=== PATIENT | male | born 1955 | race Caucasian/White ===

== ENCOUNTER → 2022-11-10 09:38 | Outpatient (BNVA) | payer BC, SELFPAY | PROVIDERS: PCP Family Medicine; Referring Provider Family Medicine; Visit Provider Student in an Organized Health Care Education/Training Program | CPT/HCPCS: 20610; 99203; J1040 ==

== ENCOUNTER 2023-04-10 05:02 | Outpatient (CLI) | payer BC, SELFPAY ==
[2023-04-10 12:31] LABS: HCT 46.2 % (40.0-50.0); HGB 15.9 g/dL (13.5-17.5); MCH 31.6 pg (27.0-33.0); MCHC 34.4 % (32.0-36.0); MCV 92 fL (80-95); MPV 8.4 fL (8.0-11.0); Platelet Count 236 10^3/uL (130-400); RBC 5.03 10^6/uL (4.36-5.78); RDW 12.2 % (11.8-14.1); RDW-SD 41.1 fL; WBC 7.42 10^3/uL (4.4-10.8)
[2023-04-10 13:17] LABS: Anion Gap 6.8 mmol/L (3-11); BUN 30 mg/dL (7-18); CO2 30.2 mmol/L (21.0-32.0); CREATININE 1.1 mg/dL (0.70-1.30); Calcium 9.7 mg/dL (8.5-10.1); Chloride 106 mmol/L (98-107); Estimated GFR 73.12 (mL/min/1.73m2); Glucose 110 mg/dL (74-106); Potassium 4.3 mmol/L (3.5-5.1); Sodium 143 mmol/L (136-145)
== END 2023-04-10 05:03 | disposition home or self-care (01) ==
LOC: LBO 05:02
PROVIDERS: PCP Family Medicine; Visit Provider Student in an Organized Health Care Education/Training Program
DX: Z01.818 Encounter for other preprocedural examination
CPT/HCPCS: 36415; 80048; 85027

== ENCOUNTER 2023-04-10 15:54 | Outpatient (CLI) | payer BC, SELFPAY ==
--- NOTE | 2023-04-10 11:30 | DI.RAD_ITS ---
Exam(s) XR PELVIS AP EXAM: XR PELVIS AP CLINICAL HISTORY: pre- LUDIN. TECHNIQUE: 2D digital imaging was performed.One images were obtained. COMPARISON: DOC,DX XR PELVIS AND HIP LAT RT from 07/06/2021 FINDINGS: BONES: No acute fracture is present. No bony destructive lesion is seen. JOINTS: There are findings of a prior left total hip replacement. The orthopedic hardware appears in good position. There is marked narrowing of the superior joint space of the right hip. Subchondral sclerosis is seen. Osteophytes are seen in the right femoral head. SOFT TISSUE: Normal. IMPRESSION: Marked degenerative changes of the right hip. DATA REPOSITORY: RADIATION DOSE DELIVERED:
== END 2023-04-10 15:55 | disposition home or self-care (01) ==
LOC: DIORS 15:54
PROVIDERS: PCP Family Medicine; Visit Provider Student in an Organized Health Care Education/Training Program
DX: M16.11 Unilateral primary osteoarthritis, right hip (principal); Z01.818 Encounter for other preprocedural examination
CPT/HCPCS: 72170

== ENCOUNTER 2023-04-19 05:55 | Day surgery (SDC) | payer BC, SELFPAY ==
[2023-04-19] VITALS (14 sets, daily range): BP systolic 96–166; BP diastolic 55–98; PULSE 52–75; RESP 13–22; TEMP 36.3–37; O2SAT 94–100; BMI 26.4
[2023-04-19] MEDS: Lactated Ringers 1,000 ML 80 ML IV (06:50)
--- NOTE | 2023-04-19 07:08 | W.ANESPRE ---
General Info Date of Service Date Performed: 04/19/23 Height: 5 ft 10 in Weight: 83.4 kg Body Mass Index (BMI): 26.4 Surgical Procedure: Operation Date: 04/19/23 07:50 Proposed Procedure Side Surgeon p Hip Total Hip Anterior Right Hardy Mariee MD Meds Allergies and Home Medications Allergies Allergy/AdvReac Type Severity Reaction Status Date / Time No Known Allergies Allergy Verified 04/19/23 06:07 Home Medication Medication Instructions Recorded lisinopril 20 mg tablet 20 mg PO DAILY 11/10/22 acetaminophen 500 mg tablet 1,000 mg (2 x 500 mg) PO TID #90 04/19/23 tabs aspirin 81 mg tablet,delayed 81 mg PO BID #60 tabs 04/19/23 release dexamethasone 4 mg tablet 4 mg PO DAILY #2 tabs 04/19/23 naproxen 500 mg tablet 500 mg PO BID PRN #60 tabs 04/19/23 pantoprazole 40 mg tablet,delayed 40 mg PO DAILY #30 tabs 04/19/23 release tramadol 50 mg tablet 50 mg PO BID PRN #4 tabs 04/19/23 Current Visit Medications: Current Medications Generic Name Dose Route Start Last Admin Trade Name Freq PRN Reason Stop Dose Admin Acetaminophen 1,000 mg 04/19/23 06:00 Acetaminophen 500 Mg Tab PO 04/19/23 16:00 PREOP JHONNY Tranexamic Acid 1,000 mg/ 60 mls @ 360 mls/hr 04/19/23 06:00 Sodium Chloride IV 04/19/23 16:00 PREOP JHONNY Ringer's Solution 1,000 mls @ 80 mls/hr 04/19/23 06:00 IV 04/19/23 23:59 INFUSION JHONNY Cefazolin Sodium/Dextrose 2 gm in 50 mls @ 100 mls/hr 04/19/23 06:00 Ancef Duplex IVPB 04/19/23 23:59 PREOP [facility] IV Miscellaneous Supplies 1 each 04/19/23 06:00 Iv Access IV 04/19/23 23:59 DIRECTED JHONNY Meloxicam 15 mg 04/19/23 06:00 Meloxicam 15 Mg Tab PO 04/19/23 23:59 PREOP JHONNY Sodium Chloride 0 ml 04/19/23 06:00 Normal Saline Flush 10 Ml Syr IV 04/19/23 23:59 PRN PRN Sodium Chloride 0 ml 04/19/23 06:00 Normal Saline 10 Ml Vial IJ 04/19/23 23:59 DIRECTED PRN Sterile Water 0 ml 04/19/23 06:00 Water,Injection,Sterile 10 Ml Vial IJ 04/19/23 23:59 DIRECTED PRN PFSH Active Problems Active Problems: Problem Status Onset Code Lumbar spinal stenosis M48.061 Left lumbar radiculopathy M54.16 Arthritis of right hip M16.11 Osteoarthritis of right knee M17.11 Osteoarthritis of left knee M17.12 Tobacco Smoking/Tobacco Use Status: Never Alcohol Alcohol Intake: current Alcohol intake frequency: a few times a week Alcohol type: hard liquor Substance Use Substance use: Never Substance use type: does not use Vital Signs and Lab Results Vital Signs Most Recent Vital Signs in EMR: Most Recent Vital Signs Temp Pulse Resp BP Pulse Ox 36.4 C L 66 16 166/91 H 98 04/19/23 06:12 04/19/23 06:12 04/19/23 06:12 04/19/23 06:12 04/19/23 06:12 Lab Results Blood Type / Crossmatch: No Data to Display Complete Blood Count: White Blood Count 7.42 10^3/uL (4.4-10.8) 04/10/23 12:13 Red Blood Count 5.03 10^6/uL (4.36-5.78) 04/10/23 12:13 Hemoglobin 15.9 g/dL (13.5-17.5) 04/10/23 12:13 Hematocrit 46.2 % (40.0-50.0) 04/10/23 12:13 Platelet Count 236 10^3/uL (130-400) 04/10/23 12:13 Complete Metabolic Panel: Sodium 143 mmol/L (136-145) 04/10/23 12:13 Potassium 4.3 mmol/L (3.5-5.1) 04/10/23 12:13 Chloride 106 mmol/L (98-107) 04/10/23 12:13 Carbon Dioxide 30.2 mmol/L (21.0-32.0) 04/10/23 12:13 BUN 30 mg/dL (7-18) H 04/10/23 12:13 Creatinine 1.1 mg/dL (0.70-1.30) 04/10/23 12:13 Est GFR (CKD-EPI 2020) 73.12 (mL/min/1.73m2) 04/10/23 12:13 Calcium 9.7 mg/dL (8.5-10.1) 04/10/23 12:13 Glucose 110 mg/dL (74-106) H 04/10/23 12:13 Liver Function Panel: No Data to Display Coagulation Panel: No Data to Display Cardiac Panel: No Data to Display Arterial Blood Gas: No Data to Display Venous Blood Gas: No Data to Display Pancreas Panel: No Data to Display Thyroid Panel: No Data to Display Infectious Disease: No Data to Display Blood Cultures: No Data to Display Toxicology Panel: No Data to Display Anesthesia Assessment and Plan Anesthesia History Personal History: No History of Anesthesia Complications Family History: No Family History of Anesthesia Complications Exercise Tolerance Exercise Tolerance: Metabolic Equivalents>4 Pertinent Negatives Pertinent Negatives: No Symptoms of GERD, No Major Cardiovascular Symptoms or Complaints and No Major Pulmonary Symptoms or Complaints Cardiac & Pulmonary Exam Cardiac Exam: Normal S1/S2 Heart Sounds Pulmonary Exam: Clear Bilateral Breath Sounds Implantable Cardiac Device Does patient have a Pacemaker or an ICD?: No Airway Exam Known Difficult Airway: No Mallampati Class: 1 Mouth Opening: Normal (> 3cm) Thyromental Distance: Greater than 3 cm Neck Range of Motion: Full ROM Neck Circumference: Normal Teeth Condition: Normal Dentition ASA Classification ASA Score: ASA 2 Emergency Case?: No NPO Status NPO Status: NPO Clears >2 hours, Solids >8 hours Anesthesia Plan Resuscitation Status: Full Code Anesthesia Technique: Spinal Anesthesia Airway Planned: Natural Airway Monitors Used: Standard Monitors
[2023-04-19] MEDS: Acetaminophen 500 MG TAB 1000 MG PO (07:12)
[2023-04-19] MEDS: Meloxicam 15 MG TAB PO (07:13)
--- NOTE | 2023-04-19 07:14 | PDOC.DSDIS_ITS ---
Date of service: 04/19/23 Time of Service: 07:14 Discharge Plan Disposition Patient Disposition: Home Condition: Good Discharge Details Reason For Visit: R THR Attending Provider: Hardy Mariee Primary Care Provider: Lupillo Meléndez Home Meds and New Rx's Prescriptions: New acetaminophen 500 mg tablet 1,000 mg PO TID Qty: 90 3RF aspirin 81 mg tablet,delayed release (DR/EC) 81 mg PO BID Qty: 60 0RF dexamethasone 4 mg tablet 4 mg PO DAILY Qty: 2 0RF tramadol 50 mg tablet 50 mg PO BID PRNQty: 4 0RF pantoprazole 40 mg tablet,delayed release (DR/EC) 40 mg PO DAILY Qty: 30 0RF naproxen 500 mg tablet 500 mg PO BID PRNQty: 60 2RF Continued lisinopril 20 mg tablet 20 mg PO DAILY Discontinued naproxen 250 mg tablet 250 mg PO BID PRN Discharge Instructions Additional Instructions: Total Hip Discharge Instructions Activity: The most important activity is to walk. You should try to take short walks a few times a day. You have no restrictions on movement or positioning, but do not try to force what you do. You will find some stiffness and weakness with hip flexion (lifting your knee). Do not try to strengthen this too early, continue to practice walking and stairs and this will come. - Outpatient physical therapy can be helpful to help return you to a normal gait and improve your flexibility and strength. This can start around 2 weeks. For some patients, it?s not necessary. Usually this is determined at the time of discharge or at the first post-operative visit. - You should wear the NORA hose on both legs for 2 weeks. Dressing: Keep the surgical dressing in place for at least one week. After the first week it may be removed and replace with light gauze and tape or nothing. It may get wet after 3 days but avoid soaking the dressing. If it gets wet, just lightly pat dry. It is important to always keep some gauze between skin folds, especially when you are sitting. Spend some time with the wound exposed when you are lying flat as the incision does wrinkle onto itself. Medications: - You should take Tylenol and an anti-inflammatory naproxen as your primary pain control medications. - You have been prescribed a stronger pain medication tramadol for breakthrough pain, take as needed as prescribed. - You have also been prescribed a stomach acid reduction agent Pantoprozole to help reduce stomach acid and reflux. - You have also been prescribed Decadron to help with post-operative nausea and pain. You will take this for two days starting tomorrow. - You will be taking Aspirin 81mg twice a day for DVT prevention unless instructed otherwise. - If you have constipation you should take Colace or Miralax (both gyyr-vry-vkaannw). It takes most people 3-4 days to have a bowel movement. Follow-up: 2 weeks If you have any acute concerns or questions, please do not hesitate to contact the office at [phone]. You may contact Dr. Mariee with any questions after hours through the hospital at [phone] or on his cell phone at [phone]. Referrals: Hardy Mariee MD [ [facility] STAFF PHYSICIAN] - Equipment/Supplies: Walker Activity:: Activity as Tolerated Shower/Bathe:: 72 hours Diet:: As Tolerated DS: Diagnosis Discharge Diagnosis (1) Arthritis of right hip: Status: Acute
[2023-04-19] MEDS: ceFAZolin 2 GM/50 ML BAG IVPB (07:33)
--- NOTE | 2023-04-19 08:50 | DI.RAD_ITS ---
Exam(s) XR HIP RT IN OR EXAM: XR HIP RT IN OR CLINICAL HISTORY: right hip osteoarthritis. TECHNIQUE: 2D and realtime digital imaging was performed. COMPARISON: CR XR PELVIS AP from 04/10/2023 FINDINGS: A hard copy image shows placement of a right hip prosthesis. The alignment appears satisfactory. Please see procedure note for details. Fluoro time: 24seconds RADIATION DOSE DELIVERED: Ka,r=2.93 mGy
--- NOTE | 2023-04-19 09:30 | RT.EKG_ITS ---
APPROVED REPORT Exam: Resting ECG Reason for Exam: Chest Pressure Patient Location: O HR:52 bpm ECG Measurements Heart Rate 52 AXIS MS 174 P 32 QRSd 78 QRS -1 QT 462 T 139 QTc 432 Conclusion Sinus bradycardia...rate< 60 Early transition Left ventricular hypertrophy with repolarization abnormalities
--- NOTE | 2023-04-19 10:12 | ROE_ITS ---
Date of service: 04/19/23 Time of Service: 07:50 Operative Note Operative Note DATE OF PROCEDURE: 04/19/23 PRE-OP DIAGNOSIS: Right Hip Osteoarthritis POST-OP DIAGNOSIS: same PROCEDURE: Right Anterior Total Hip Arthroplasty with Intraoperative Navigation SURGEON: Hardy Mariee MIXING HOUSE OPERATOR: Abhishek Cheng ANESTHESIA TYPE: Spinal Refer to Anesthesia Record ESTIMATED BLOOD LOSS: 150 PATHOLOGY: none sent TOURNIQUET TIME: 0 COMPLICATIONS: None Patient was transported to: PACU Patient's condition: stable Implants: 1. Depuy [place] Acetabular Component, 56mm 2. Depuy Acetabular Liner, 32h54ic 3. Depuy Actis Standard Collared Femoral Stem, Size 7 4. Depuy Altrx Ceramic Femoral Head, Size 36+5mm Indications: I have seen Tan in clinic for symptoms of hip arthritis, confirmed with radiographic findings. He has exhausted nonoperative methods and was having significant limitations in daily function and desired better function and less pain. I discussed the technical details of a hip replacement. I explained the risks of the procedure to include, but not limited to, bleeding, infection, pain, stiffness, fracture, damage to nerves and vessels, damage to muscles and tendons, loosening, instability, leg length inequality, need for repeat proc edure, blood clot and cardiopulmonary demise. Despite these risks, Tan elected to proceed. Findings: There was significant signs of arthritis throughout the hip. Procedure Description: Tan was greeted in the preoperative holding area where the correct side was identified and marked. The consent was reviewed with the patient and signed. The history and physical was updated. All questions were answered. He was taken back to the operating room. A spinal anesthestic was then administered. The feet were wrapped with cast padding and Coban and then placed into the boot liners and then into the boots. Care was taken to protect the skin and make sure the heels were fully down and the boots were stable. The patient was then positioned onto the HANA table. Both legs were held in a neutral position. SCDs were applied. The patient was then slid down onto a peroneal post. Prophylactic antibiotics in the form of Cefazolin were administered. 1g of Tranxemic Acid was given intravenously within 30 minutes of incision. The right leg was then prepped with Chloraprep and draped in a standard fashion. A second prep with Chloraprep was performed prior to placement of a shower-curtain type drape with Iodine impregnated skin protection. A timeout to confirm correct identity, side and site, procedure, allergies, anesthesia, and medical concerns was performed. An obliquely oriented incision was made starting lateral to the ASIS and running distal over the Tensor Fascia Veda (TFL) muscle belly toward the fibular head, approximately 10cm. The skin and soft tissue was dissected sharply, through Zoie?s fascia, and to the fascia of the TFL. With the fascia and superior border of the IT band identified, the fascia was incised with a new knife just above any perforators from the IT band. The TFL muscle belly was bluntly dissected away from the fascia and moved laterally. The fat between TFL and rectus was identified to ensure the dissection was not within the TFL. Blunt dissection created space between abductors and the capsule and retractor was placed over the lateral femoral neck. The fibers of the rectus femoris tendon were identified and these were freed from the anterior capsule. A second cobra retractor was placed around the medial femoral neck. The TFL was further retracted laterally to show the deep fascia. Careful dissection through this layer identified three main crossing vessels of the lateral femoral circumflex. These were cauterized in multiple locations and then cut without any noticeable bleeding. The TFL was further released bluntly from the deep fascia to expose anterior hip capsule and fat The Luis orthopaedic retractor was then placed beneath the TFL and against sartorius and medial soft tissues to protect and retract the soft tissues. A T-capsulotomy was then performed starting at the superior lateral acetabulum and moving distally to the intertrochanteric ridge. These capsular flaps were tagged with a No. 1 Ethibond and elevated from within. The capsular flaps were released to the shoulder of the lateral neck and to the lesser trochanter to give excellent visualization of the proximal femur. A neck osteotomy was performed using an oscillating saw based on preoperative templates. This cut started in the shoulder and of the lateral neck and exited medially. The saw was at all times directed medially to avoid injury to the greater trochanter. Gross traction was applied to the leg and the osteotomy opened. The femoral head was removed with a corkscrew, making sure to protect the TFL on its exit. Traction was released after head removal. This was measured on the back table to determine the starting reamer size. Portions of the rectus obscuring visualization were minimally elevated off the superior acetabulum. An anterior retractor was placed over the anterior wall between capsule and labrum and attached to the Gripper retraction system. The femur was rotated to 90 degrees and medial capsule was fully released until the lesser trochanter was palpable and visible; the femur was returned to 30 degrees. A posterior retractor was placed similarly between capsule and labrum. This provided excellent visualization. The contents of the cotyloid fossa were removed with electrocautery and the labrum was removed with a knife. There was a notable floor osteophyte. There was significant chondromalacia of the superior acetabulum. Acetabular reaming began with a 52mm reamer. This first reaming was directed anterior to posterior and medial to get down to the true floor. This was inspected and reamed until the true floor was reached. The anterior retractor was then released and entry and exit was provided by traction on the capsular flaps. I then reamed sequentially up to a 56mm reamer where good fit was obtained. The larger reamers were oriented based on anatomical reference of the anterior and lateral burroughs to ensure proper abduction and anteversion. Positioning and size was confirmed with the fluoroscopy. A 56mm Depuy [place] acetabular component was selected. The acetabulum was reamed around the periphery with the selected acetabular size to prevent a rim fit. The deep tissues were irrigated. The acetabular component was then impacted in a position of about 40-45 degrees of abduction and 15-20 degrees of anteversion, using the patient?s anatomy as the ultimate landmark. Fluoroscopy was used to confirm this. There was excellent blow up operator of the acetabular component and the inserting handle was removed. The acetabular liner, Depuy [id number] polyethylene liner, was inserted and lined up with the tines of the acetabular component. There was no soft tissue interposition. The liner was then impacted into position and confirmed to be well-seated. A portion of the aldo-articular cocktail was then injected around the acetabulum into the capsule and periosteum. This cocktail consisted of 123mg of Ropivacaine, 0.25mg of Epinephrine, 0.04mg of Clonidine, and 15mg of Ketorolac, diluted to 50cc. The leg was rotated to 120 degrees. Any remaining medial capsule was released until the lesser trochanter was easily palpable. A retractor was placed medially. The lateral capsule was further released into the shoulder to allow access to the greater trochanter. A Guerrier retractor was placed over the greater trochanter which allowed the trochanter to flip in front of the capsule for excellent exposure. The leg was brought down into maximal extension and 20 degrees of adduction while ensuring there was no impingement on the acetabulum. Any remnant capsule within the trochanter was released. Piriformis and obturator externis were identified and protected. There was excellent access to the proximal femur. The lateral neck remnant was removed with a rongeur. A blunt canal probe was used to identify the canal and trajectory for later broaching. A box osteotome initiated the broach course. A small curved rasp and a curved curette were used to work laterally. Broaching then began with a starter Actis broach. This was inserted manually around the trochanter and into the canal before mallet blows. The broach was seated to a few millimeters below the cut level based on the neck cut and the preoperative template. Sequential broaching was continued with the [employer] pneumatic broaching device until a tight fit was obtained with good rotational control of the femur. A trial standard neck was inserted along with a +1.5 trial head. The leg was brought out of extension and adduction and then reduced with traction and internal rotation. The leg was stable anteriorly in a position of 30 degrees of extension and 90 degrees of external rotation. Fluoroscopy was used to ensure there was no fracture and the stem was seated well. Leg lengths were checked with an AP pelvis and pelvic reference points. [employer]yo[employer] navigation system was used to confirm appropriate positioning and leg length and offset. This overcorrected the leg length so the stem size was decreased and the stem advanced and retrialed with a +5 head. Once content with the desired offset and leg lengths, the leg was brought back into extension, external rotation and adduction. The periosteum and surrounding tissue was injected with remaining portion of the aldo-articular cocktail. The proximal femur was irrigated as well as the deep tissues. The Kate[employer] Goodnessuy Actis standard collared stem, size 7, was then manually inserted into the proximal femur making sure to control rotation. It was then malleted into position with light blows, giving breaks to allow bone expansion and decrease risk of fracture. The selected Depuy Altrx Ceramic Head, size 36+5mm, was then placed onto the clean and dry trunnion and secured with impaction onto the tapered fit. The leg was brought back out of extension and adduction and reduced with traction and internal rotation. Stability was confirmed with no shuck at 90 degrees of external rotation and 30 degrees of extension. No impingement through range of motion arc. Final x-ray images were obtained with fluoroscopy to confirm adequate positioning and no intraoperative fracture. The deep tissues were thoroughly irrigated with Surgiphor, betadine solution. This was allowed to sit in the wound for 3 minutes before being thoroughly irrigated out with normal saline. The capsule was then reapproximated with the previously placed Ethibond sutures. The TFL fascia was finally closed with a No. 2 Stratafix, barbed suture. Deep tissues were then reapproximated with 0 Vicryl and a running 2-0 Vicryl. The skin was closed with a running 4-0 Monocryl in a subcuticular fashion. This was reinforced with skin glue. A Mepilex silver dressing was applied. At the end of the case, all counts were correct. Tan was transferred to the hospital bed without difficulty and suffering no apparent complication. Tan has a good prognosis. Physical therapy will start today and without restrictions, weight-bearing as tolerated. Aspirin 81mg BID will be used for DVT prophylaxis.
[2023-04-19 10:46] LABS: ALT 22 U/L (16-63); AST 20 U/L (15-37); Albumin 3.7 g/dL (3.4-5.0); Alkaline Phosphatase 72 U/L (46-116); Anion Gap 9.5 mmol/L (3-11); BUN 23 mg/dL (7-18); Bilirubin, Total 0.4 mg/dL (0.2-1.0); CO2 26.5 mmol/L (21.0-32.0); CREATININE 1.1 mg/dL (0.70-1.30); Calcium 8.9 mg/dL (8.5-10.1); Chloride 106 mmol/L (98-107); Estimated GFR 73.12 (mL/min/1.73m2); Glucose 119 mg/dL (74-106); Potassium 4.9 mmol/L (3.5-5.1); Sodium 142 mmol/L (136-145); Total Protein 6.5 g/dL (6.4-8.2); Troponin I < 50 ng/L (< or =60)
--- NOTE | 2023-04-19 10:47 | PDOC.ANES ---
Date of service: 04/19/23 Time of Service: 09:50 Anesthesia Note Report Anesthesia Note: Pt. had uneventful hip surgery. While in PACU, he complained of 1/10 anterior chest pressure. Denies radiation, SOB/dizziness/sweaty feeling. This is not reproducible and does not change with breathing. With further investigation, he states he has had this feeling on and off over the past year or so, most noted while exerting himself at times with SOB. He states this usually improves when he takes a break. He has not mentioned this to anyone until today. He appears in no acute distress and is hemodynamically stable. no oxygen requirement. Will obtain 12 lead and order base troponin and CMP. 12 lead showed slight elevation in V2 as well as lateral leads flipped T wave. I discussed this with patient at 1005, his pressure was gone. Given 12 lead changes, will check another troponin in 4 hours. No need to escalate care at this time, but will take appropriate precautions. All questions answered and patient understands plan.
--- NOTE | 2023-04-19 13:53 | IN_ITS ---
PT Notes Visit Reasons: R THR Physical Therapy Day Surgery Initial Evaluation Date: 04/19/2023 Referring Doctor: JOSE Trinh PT Orders: PT CONSULT: S/P ortho Surgery Precautions: WBAT on the R LE with AD. Patient Profile/Admitting Diagnosis: Eric is a 67-year-old male with degenerative joint disease of the right hip and is status post right anterior total hip arthroplasty on postoperative day 0. PMHX: All Active Problems (Updated 03/19/23 @ 14:40 by Hardy Mariee MD) Lumbar spinal stenosis (Acute) Left lumbar radiculopathy (Acute) Arthritis of right hip (Acute) Osteoarthritis of right knee (Acute) DEPO MEDROL 03/17/23 Osteoarthritis of left knee (Acute) DEPO MEDOL 03/17/22 Social History/Home Situation: Lives with in a private home with no steps to enter, they do have 3 steps that lead to their kitchen area with stable surfaces that he can push down on both sides. Independent with all aspects feels prior to surgery although has had increasing difficulty with mobility performance due to worsening arthritis. Equipment Owned/DME: None Subjective: Complained of achiness on the right hip about 1?2/10 pain. Reported mild lightheadedness that did not limit mobility performance. Denied headache and chest pain throughout session. Objective: General Observation: Mepilex Ag over surgical incision. TEDS to be legs. present in room throughout session. Mental Status: A&O x 4 Pain: As above ROM: Right Lower Extremity: Hip flexion WFL. Hip abduction WFL. Knee flexion WFL. Ankle dorsiflexion WFL. Ankle plantarflexion WFL. Left Lower Extremity: Hip flexion WFL. Hip abduction WFL. Knee flexion WFL. Ankle dorsiflexion WFL. Ankle plantarflexion WFL. Strength: Right Lower Extremity: Hip flexors 4-/5. Hip abductors 4-/5. Knee flexors 5/5. Knee extensors 4-/5. Ankle dorsiflexors 5/5. Ankle plantarflexors 5/5. Left Lower Extremity:Hip flexors 5/5. Hip abductors 5/5. Knee flexors 5/5. Knee extensors 5/5. Ankle dorsiflexors 5/5. Ankle plantarflexors 5/5. Sensation: Intact as to pain and light pressure in BLE Bed Mobility/Transfers: Minimal cueing provided for use of B hands as needed for support, movement sequence, AD management, and posture to reduce fall risk and minimize pain report Supine to sit standby assist Sit to stand contact-guard assist with FWW Stand to sit standby assist with FWW Bed to chair stand by assist with FWW Gait: Facilitated safe and correct performance of level surface ambulation covering a distance of 150 feet using reciprocal step through gait pattern with standby assist and minimal cueing provided for movement sequence, AD management, and posture to reduce fall risk and minimize pain report. STAIRS: Guided patient with safe and correct negotiation of 6 x 4 inch steps and 4 x 6 inch steps holding onto bilateral rails with step to gait pattern requiring standby assist and minimal verbal cueing for movement sequence and posture to reduce fall risk and minimize pain report. Balance: Static Sitting: Normal Dynamic Sitting: Normal Static Standing: Fair Dynamic Standing: fair Special Tests: Mobility Limitations Standardized Measure [facility] AM-PAC 6 clicks Basic Mobility Inpatient Short Form: Raw Score: 23 CMS Score: 11% deficit Informed Consent/Education: Patient instructed in purpose of PT consult. Packet containing LUDIN exercise protocol has been given to patient. Education and training on initial set of exercises that can be done at home have been completed with patient. Trained patient with correct performance of exercises below to maximize motor control, joint flexibility, soft tissue extensibility of the R hip musculature to facilitate return to independent functional mobility performance. Access Code: [email or web address] URL: [email or web address] Date: 04/19/2023 Prepared by: Rosemarie Grider Exercises - Gluteal Sets - 1 x daily - 7 x weekly - 1 sets - 10 reps - 5 hold - Supine Heel Slide - 1 x daily - 7 x weekly - 1 sets - 10 reps - 5 hold - Supine Ankle Pumps - 1 x daily - 7 x weekly - 1 sets - 10 reps - 5 hold - Seated March - 1 x daily - 7 x weekly - 1 sets - 10 reps - 5 hold - Seated Long Arc Quad - 1 x daily - 7 x weekly - 1 sets - 10 reps - 5 hold Assessment: Patient requires use of a front wheeled walker for all mobility ADL performance to maximize independence and reduce fall risk. Patient presents with clinical signs and symptoms consistent with current/admitting diagnoses that have resulted to mobility limitations, gait instability, generalized weakness, and impairment of motor control as demonstrated by the following impairment level findings: 1. Decreased strength to R hip major muscle groups 2. Impaired standing balance Impairments are contributing to the following functional limitations: 1. Inability to safely ambulate without assistive device 2. Increase completion time for mobility ADL performance 3. Increased fall risk Patient is assessed as a 28805 moderate complexity based on the following: History: 67-year-old male with impairment level findings, functional limitations , and past medical history as indicated above Examination: Demonstrable impairment in strength, balance, and mobility level with underlying impairments and functional limitations as documented above Presentation: Evolving Decision Makin moderate complexity Goals: N/A. PT evaluation and 1-2 treatment sessions only for functional mobility training using recommended AD and for HEP instruction. Plan of Care/Treatment Plan: N/A. PT evaluation and 1-2 treatment session only for functional mobility training using recommended AD and for HEP instruction. DISCHARGE RECOMMENDATIONS: Home when medically cleared by orthopedic surgeon. Recommend outpatient PT services in order to optimize functional mobility outcomes and facilitate return to independent community ambulation without an assistive device. TREATMENT CODE/TIME: 01136 x 27 minutes for 1 unit (13:52-14:20). Thank you for the opportunity to participate in the care of this patient. Please sign an return this page within 30 days if you agree with the above POC. Thank you! Physician Signature Date [facility] Thank you for the opportunity to participate in the care of this patient. Rosemarie Grider PT, DPT, CLT [facility] [place], [place]
[2023-04-19 14:17] LABS: Troponin I < 50 ng/L (< or =60)
--- NOTE | 2023-04-19 14:37 | W.ANESPOSTOP ---
Postoperative Evaluation Date, Time and Location Date Performed: 04/19/23 Time Performed: 14:37 Patient Location: Day Surgery Unit Vital Signs Most Recent Imported Vital Signs: Most Recent Vital Signs Temp Pulse Resp BP Pulse Ox 37.0 C 73 16 143/92 H 96 04/19/23 13:55 04/19/23 13:55 04/19/23 13:55 04/19/23 13:55 04/19/23 13:55 Pain Score Most Recent Pain Score: Most Recent Pain Score Pain Level 0 04/19/23 13:55 Assessment Mental Status: Awake (Alert & Oriented to Patient Baseline) Airway and Respiratory Function: Patent airway with normal (patient baseline) respiratory exam Cardiovascular Function: Hemodynamically Stable Hydration Status: Adequately Hydrated Nausea & Vomiting: No Nausea or Vomiting Pain: Pt. Denies Any Pain Peripheral Nerve Block: Patient did not receive a nerve block
== END 2023-04-19 15:20 | disposition home or self-care (01) ==
PROVIDERS: Nurse Anesthetist, Certified Registered; PCP Family Medicine; Visit Provider Student in an Organized Health Care Education/Training Program
PROC: (CPT 27130; principal; 2023-04-19 07:30)
DX: M16.11 Unilateral primary osteoarthritis, right hip (principal)
CPT/HCPCS: C1776; 20985; 27130; 36415; 80053; 97162; 73501; 84484; 93005; 93010; J0690; J1100; J2250; J2371; J2401; J2405; J2704

== ENCOUNTER 2023-05-04 14:52 | Outpatient (CLI) | payer BC, SELFPAY ==
--- NOTE | 2023-05-04 12:00 | DI.RAD_ITS ---
Exam(s) XR HIP RT COMPLETE AP PELVIS EXAM: XR HIP RT COMPLETE AP PELVIS CLINICAL HISTORY: 1st post op S/P R LUDIN. TECHNIQUE: 2D digital imaging was performed. COMPARISON: CR XR PELVIS AP from 04/10/2023 FINDINGS: Two views: There as been interval placement of a right hip prosthesis. This is in satisfactory position alignme nt. No fracture or loosening evident. The opposite-left hip prosthesis also remain stable. IMPRESSION: Stable satisfactory appearance. DATA REPOSITORY: RADIATION DOSE DELIVERED:
== END 2023-05-04 14:53 | disposition home or self-care (01) ==
LOC: DIORS 14:53
PROVIDERS: PCP Family Medicine; Visit Provider Physician Assistant
DX: Z96.641 Presence of right artificial hip joint (principal); Z47.1 Aftercare following joint replacement surgery
CPT/HCPCS: 73502

== ENCOUNTER 2023-12-12 06:05 | Day surgery (SDC) | payer BC, SELFPAY ==
[2023-12-12 06:23] VITALS: BP 121/74; PULSE 64; RESP 16; TEMP 36.6; O2SAT 98
--- NOTE | 2023-12-12 07:11 | PDOC.DSDIS_ITS ---
Date of service: 12/12/23 Time of Service: 07:13 Discharge Plan Disposition Patient Disposition: Home Condition: Good Discharge Details Reason For Visit: Right index trigger finger Attending Provider: Hardy Mariee Primary Care Provider: Lupillo Meléndez Home Meds and New Rx's Prescriptions: Continued lisinopril 20 mg tablet 20 mg PO DAILY aspirin 81 mg tablet,delayed release (DR/EC) 81 mg PO DAILY clopidogrel [Plavix] 75 mg tablet 75 mg PO DAILY acetaminophen 500 mg tablet 1,000 mg PO TID Qty: 90 3RF naproxen 500 mg tablet 500 mg PO BID PRNQty: 60 2RF Discharge Instructions Stand Alone Forms: Jaylene Mcdaniels Finger Release Referrals: Hardy Mariee MD [ [facility] STAFF PHYSICIAN] - Activity:: Elevate Remove Dressings/Wound Care:: 48 hours Shower/Bathe:: 48 hours Diet:: As Tolerated Discharge Orders Discharge Orders: Discharge Order (Routine); Ordered 12/12/23 Ordered By: Khushboo Cuellar
[2023-12-12] MEDS: Sodium Bicarbonate 50 MEQ/50 ML VIAL (07:33)
[2023-12-12] MEDS: Lidocaine 1% Multi-Dose W/EPI 1/100,000 50 ML VIAL (07:33)
[2023-12-12 07:37] VITALS: BP 145/87; PULSE 54; RESP 16; TEMP 36; O2SAT 100
--- NOTE | 2023-12-12 07:38 | W.PM.OP ---
Date of service: 12/12/23 Time of Service: 07:20 Operative Note Operative Note DATE OF PROCEDURE: 12/12/23 PRE-OP DIAGNOSIS: Right Index Finger Trigger Finger POST-OP DIAGNOSIS: same PROCEDURE: Trigger Finger Release - Right Index Finger SURGEON: Hardy Mariee JUVENILE PROBATION OFFICER: Khushboo Cuellar ANESTHESIA TYPE: Local By Surgeon Refer to Anesthesia Record PATHOLOGY: none sent COMPLICATIONS: None Patient was transported to: same day Patient's condition: stable Indications: I have seen Tan in clinic for symptoms of a trigger finger. The catching, clicking, locking, and pain limited function. The diagnosis of trigger finger was evident. The symptoms had not responded to conservative measures. I discussed trigger finger release with the patient. I reviewed the risks of the procedure to include, but not limited to, bleeding, infection, pain, stiffness, incomplete release, damage to nerves or vessels, continued catching, recurrence. Despite these risks, the patient elected to proceed. Findings: There was a tightened A1 georgi which was released. The flexor tendons were inspected and the patient was able to move the finger without any catching, clicking, or locking. Procedure Description: Tan was greeted in the preoperative holding area where the correct side was identified and marked. The consent was reviewed with the patient and signed. All questions were answered. He was taken back to the operating room. The patient was placed into the supine position on the operating room table with the right arm on an arm board. All bony prominences were well padded. No prophylactic antibiotics were administered since this was a clean, elective hand surgical case. The right arm was then prepped with Chloraprep and draped in a standard fashion with stockinette and extremity drape. A timeout to confirm correct identity, side and site, procedure, allergies, anesthesia, and medical concerns was performed. The surgical site was marked as a longitudinal incision directly over the A1 georgi of the involved digit. This was confirmed with palpation during finger flexion. This area, overlying the metacarpal head, was then anesthetized with 1% Lidocaine. The patient tolerated this well and once the anesthetic had setup, the procedure began. A longitudinal incision was made through skin only, approximately 1cm. The deep tissues were dissected bluntly. Once the A1 georgi and flexor tendons were identified the soft tissue including neurovascular structures were retracted medially and laterally. There were no crossing structures over the A1 georgi. The proximal edge of the georgi was identified and the georgi was incised with tenotomy scissors. There was a release of the tendons once this was fully released. The tendons were then removed from the wound and inspected. The tendons were then returned and the patient was asked to move the finger into deep flexion and back to extension. There was no recreation of the pre-operative symptoms. The hand was then once more inspected for any A0 georgi or area of possible constriction. The wound was then irrigated and the skin was closed with a 4-0 Nylon. This was dressed with gauze and a Conform dressing. The patient tolerated the procedure well and was returned to the Same Day Surgery area in a stable condition suffering no known complication.
== END 2023-12-12 07:51 | disposition home or self-care (01) ==
PROVIDERS: PCP Family Medicine; Visit Provider Student in an Organized Health Care Education/Training Program
PROC: (CPT 26055; principal; 2023-12-12 07:30)
DX: M65.321 Trigger finger, right index finger (principal)
CPT/HCPCS: 26055; J2004

== ENCOUNTER 2023-12-26 09:29 | Day surgery (SDC) | payer BC, SELFPAY ==
--- NOTE | 2023-12-26 07:34 | W.PM.DSUDISC ---
Date of service: 12/26/23 Time of Service: 07:34 Discharge Plan Disposition Patient Disposition: Home Condition: Good Discharge Details Reason For Visit: Left index finger trigger finger Attending Provider: Hardy Mariee Primary Care Provider: Lupillo Meléndez Home Meds and New Rx's Prescriptions: Continued lisinopril 20 mg tablet 20 mg PO DAILY aspirin 81 mg tablet,delayed release (DR/EC) 81 mg PO DAILY clopidogrel [Plavix] 75 mg tablet 75 mg PO DAILY acetaminophen 500 mg tablet 1,000 mg PO TID Qty: 90 3RF naproxen 500 mg tablet 500 mg PO BID PRNQty: 60 2RF Discharge Instructions Stand Alone Forms: Jaylene Mcdaniels Finger Jessica Activity:: Elevate Remove Dressings/Wound Care:: 48 hours Shower/Bathe:: 48 hours Diet:: As Tolerated Discharge Orders Discharge Orders: Discharge Order (Routine); Ordered 12/26/23 Ordered By: Khushboo Cuellar
[2023-12-26 09:39] VITALS: BP 122/81; PULSE 64; RESP 16; TEMP 36; O2SAT 97
[2023-12-26] MEDS: Sodium Bicarbonate 50 MEQ/50 ML VIAL (11:52)
[2023-12-26] MEDS: Lidocaine 1% Multi-Dose W/EPI 1/100,000 50 ML VIAL (11:52)
[2023-12-26 12:06] VITALS: BP 120/74; PULSE 95; RESP 16; TEMP 36.7; O2SAT 97
--- NOTE | 2023-12-26 17:12 | W.PM.OP ---
Date of service: 12/26/23 Time of Service: 12:00 Operative Note Operative Note DATE OF PROCEDURE: 12/26/23 PRE-OP DIAGNOSIS: Left index finger trigger finger POST-OP DIAGNOSIS: same PROCEDURE: Trigger Finger Release -left index finger SURGEON: Hardy Mariee ANESTHESIA TYPE: Local By Surgeon Refer to Anesthesia Record ESTIMATED BLOOD LOSS: 0 PATHOLOGY: none sent COMPLICATIONS: None Patient was transported to: same day Patient's condition: stable Indications: I have seen Joshua in clinic for symptoms of a trigger finger. The catching, clicking, locking, and pain limited function. The diagnosis of trigger finger was evident. The symptoms had not responded to conservative measures. I discussed trigger finger release with the patient. I reviewed the risks of the procedure to include, but not limited to, bleeding, infection, pain, stiffness, incomplete release, damage to nerves or vessels, continued catching, recurrence. Despite these risks, the patient elected to proceed. Findings: There was a tightened A1 georgi which was released. The flexor tendons were inspected and the patient was able to move the finger without any catching, clicking, or locking. Procedure Description: Joshua was greeted in the preoperative holding area where the correct side was identified and marked. The consent was reviewed with the patient and signed. All questions were answered. He was taken back to the operating room. The patient was placed into the supine position on the operating room table with the left arm on an arm board. All bony prominences were well padded. No prophylactic antibiotics were administered since this was a clean, elective hand surgical case. The left arm was then prepped with Chloraprep and draped in a standard fashion with stockinette and extremity drape. A timeout to confirm correct identity, side and site, procedure, allergies, anesthesia, and medical concerns was performed. The surgical site was marked as a longitudinal incision directly over the A1 georgi of the involved digit. This was confirmed with palpation during finger flexion. This area, overlying the metacarpal head, was then anesthetized with 1% Lidocaine. The patient tolerated this well and once the anesthetic had setup, the procedure began. A longitudinal incision was made through skin only, approximately 1cm. The deep tissues were dissected bluntly. Once the A1 georgi and flexor tendons were identified the soft tissue including neurovascular structures were retracted medially and laterally. There were no crossing structures over the A1 georgi. The proximal edge of the georgi was identified and the georgi was incised with tenotomy scissors. There was a release of the tendons once this was fully released. The tendons were then removed from the wound and inspected. Excess synovium was resected. The tendons were then returned and the patient was asked to move the finger into deep flexion and back to extension. There was no recreation of the pre-operative symptoms. The hand was then once more inspected for any A0 georgi or area of possible constriction. The wound was then irrigated and the skin was closed with a 4-0 Nylon. This was dressed with gauze and a Conform dressing. The patient tolerated the procedure well and was returned to the Same Day Surgery area in a stable condition suffering no known complication.
== END 2023-12-26 12:15 | disposition home or self-care (01) ==
LOC: SUR 09:31
PROVIDERS: PCP Family Medicine; Visit Provider Student in an Organized Health Care Education/Training Program
PROC: (CPT 26055; principal; 2023-12-26 11:45)
DX: M65.322 Trigger finger, left index finger (principal)
CPT/HCPCS: 26055; J2004

== ENCOUNTER 2024-02-12 11:48 | Day surgery (SDC) | payer BC, SELFPAY ==
--- NOTE | 2024-02-12 07:46 | W.PM.DSUDISC ---
Date of service: 02/12/24 Discharge Plan Disposition Patient Disposition: Home Condition: Good Discharge Details Reason For Visit: Left middle finger trigger finger Attending Provider: Hardy Mariee Primary Care Provider: Lupillo Meléndez Home Meds and New Rx's Prescriptions: Continued lisinopril 20 mg tablet 20 mg PO DAILY aspirin 81 mg tablet,delayed release (DR/EC) 81 mg PO DAILY clopidogrel [Plavix] 75 mg tablet 75 mg PO DAILY acetaminophen 500 mg tablet 1,000 mg PO TID Qty: 90 3RF naproxen 500 mg tablet 500 mg PO BID PRNQty: 60 2RF Discharge Instructions Stand Alone Forms: Louann Navarro (DSPatt) Activity:: Elevate Remove Dressings/Wound Care:: 48 hours Shower/Bathe:: 48 hours Diet:: As Tolerated Discharge Orders Discharge Orders: Discharge Order (Routine); Ordered 02/12/24 Ordered By: Khushboo Cuellar Discharge Data Discharge Date/Time-TO BE ENTERED AT DEPARTURE: 02/12/24 13:30
[2024-02-12 11:50] VITALS: BP 143/81; PULSE 57; RESP 18; TEMP 36.5; O2SAT 99
[2024-02-12] MEDS: Sodium Bicarbonate 50 MEQ/50 ML VIAL (13:00)
[2024-02-12] MEDS: Lidocaine 1% Multi-Dose W/EPI 1/100,000 50 ML VIAL (13:00)
--- NOTE | 2024-02-12 14:13 | ROE_ITS ---
Operative Note Operative Note PRE-OP DIAGNOSIS: Left Middle Finger Trigger Finger POST-OP DIAGNOSIS: same PROCEDURE: Trigger Finger Release - Left Middle Finger SURGEON: Hardy Mariee ANESTHESIA TYPE: Local By Surgeon Refer to Anesthesia Record ESTIMATED BLOOD LOSS: 5 PATHOLOGY: none sent COMPLICATIONS: None Patient was transported to: same day Patient's condition: stable Indications: I have seen Joshua previously for symptoms of a trigger finger. He has had trigger finger releases of other digits. More recently, the middle finger of the left hand started with similar symptoms. The catching, clicking, locking, and pain limited function. The symptoms had not responded to conservative measures and he had required trigger finger release for other digits. Thus, I discussed trigger finger release with the patient. I reviewed the risks of the procedure to include, but not limited to, bleeding, infection, pain, stiffness, incomplete release, damage to nerves or vessels, continued catching, recurrence. Despite these risks, the patient elected to proceed. Findings: There was a tightened A1 georgi which was released. The flexor tendons were inspected and the patient was able to move the finger without any catching, clicking, or locking. Procedure Description: Joshua was greeted in the preoperative holding area where the correct side was identified and marked. The consent was reviewed with the patient and signed. All questions were answered. He was taken back to the operating room. The patient was placed into the supine position on the operating room table with the left arm on an arm board. All bony prominences were well padded. No prophylactic antibiotics were administered since this was a clean, elective hand surgical case. The left arm was then prepped with Chloraprep and draped in a standard fashion with stockinette and extremity drape. A timeout to confirm correct identity, side a nd site, procedure, allergies, anesthesia, and medical concerns was performed. The surgical site was marked as a longitudinal incision directly over the A1 georgi of the involved digit. This was confirmed with palpation during finger flexion. This area, overlying the metacarpal head, was then anesthetized with 1% Lidocaine. The patient tolerated this well and once the anesthetic had setup, the procedure began. A longitudinal incision was made through skin only, approximately 1cm. The deep tissues were dissected bluntly. There was dense inflammatory tissue overlying the A1 georgi. While dissecting this away there was some bleeding which was cauterized. With this dissected overlying the flexor tendons and the georgi, the A1 georgi and flexor tendons were identified. The soft tissue including neurovascular structures were retracted medially and laterally. There were no crossing structures over the A1 georgi. The proximal edge of the georgi was identified and the georgi was incised with tenotomy scissors. There was a release of the tendons once this was fully released. Joshua was asked to move the finger into deep flexion and back to extension. There was no recreation of the pre-operative symptoms. The hand was then once more inspected for any A0 georgi or area of possible constriction. The wound was then irrigated and the skin was closed with a 4-0 Nylon. This was dressed with gauze and a Conform dressing. The patient tolerated the procedure well and was returned to the Same Day Surgery area in a stable condition suffering no known complication. Date of Procedure: 02/12/24
== END 2024-02-12 13:30 | disposition home or self-care (01) ==
LOC: SUR 11:49
PROVIDERS: PCP Family Medicine; Visit Provider Student in an Organized Health Care Education/Training Program
PROC: (CPT 26055; principal; 2024-02-12 14:00)
DX: M65.332 Trigger finger, left middle finger (principal)
CPT/HCPCS: 26055; J2004

== ENCOUNTER 2024-04-22 15:39 | Outpatient (CLI) | payer BC, SELFPAY ==
--- NOTE | 2024-04-22 09:45 | DI.RAD_ITS ---
Exam(s) XR HIP RT AP LAT ONLY EXAM: XR HIP RT AP LAT ONLY INDICATION: ANNUAL F/U R LUDIN. COMPARISON: CR XR HIP RT COMPLETE AP PELVIS from 05/04/2023 TECHNIQUE: 2D digital imaging was performed. Two views. FINDINGS: There has been no change in the alignment of the right hip prosthesis. There are no abnormal surroun ding bony lucencies. DATA REPOSITORY: RADIATION DOSE DELIVERED:
== END 2024-04-22 15:40 | disposition home or self-care (01) ==
LOC: DIORS 15:40
PROVIDERS: PCP Family Medicine; Visit Provider Student in an Organized Health Care Education/Training Program
DX: Z96.641 Presence of right artificial hip joint (principal); Z47.1 Aftercare following joint replacement surgery
CPT/HCPCS: 73502